=== PATIENT | female | born 1980 | race Asian ===

== ENCOUNTER 2024-02-15 | Emergency (ER) | payer BC ==
[~2024-02-15] VITALS: Ht 157.5 cm; Wt 48.1 kg
[~2024-02-15] MED LIST: NITR-85 PO
[2024-02-15 00:18] VITALS: BP_SYST 122; PULSE 80; RESP 20; TEMP 98.7; O2SAT 100
[2024-02-15] MEDS ORDERED: BACITRACIN 1 GM OINT TP ONE (00:33)
[2024-02-15] MEDS ORDERED: AUG875 PO (00:36)
[2024-02-15] MEDS ORDERED: AMOXICILLIN/POTASSIUM CLAV 875 MG TABLET ONE (01:01)
[2024-02-15] MEDS: DIPHTH,PERTUSS(ACELL),TET VAC 0.5 ML VIAL (Tdap) I.M. ONE (01:02)
[2024-02-15] MEDS: BACITRACIN 1 GM OINT TP ONE (01:04)
[2024-02-15] MEDS: AMOXICILLIN/POTASSIUM CLAV 875 MG TABLET PO ONE (01:16)
[2024-02-15 01:19] VITALS: BP_SYST 122; PULSE 80; RESP 20; TEMP 98.7; O2SAT 100
== END 2024-02-15 01:05 | disposition home or self-care (01) ==
LOC: SED
DX: S51.832A Puncture wound without foreign body of left forearm, initial encounter (principal); Z23 Encounter for immunization; Z79.899 Other long term (current) drug therapy; W54.0XXA Bitten by dog, initial encounter; Y93.89 Activity, other specified; Y92.89 Other specified places as the place of occurrence of the external cause; Y99.8 Other external cause status
CPT/HCPCS: 90715; 99283